=== PATIENT | male | born 1985 | race Caucasian/White ===

== ENCOUNTER 2020-07-19 13:27 | Outpatient (CLI) | payer OTHER ==
[2020-07-19] MEDS ORDERED: Magnevist 469MG/ML 20 ML VIAL ONE (13:56)
[2020-07-19] MEDS ORDERED: Iopamidol 300 61% 50 ML VIAL FS ONE (14:15)
[2020-07-19] MEDS ORDERED: Lidocaine 1% PF 10 ML AMP ONE (14:15)
[2020-07-19] MEDS ORDERED: EPINEPHrine 1 MG/ML AMP ONE (14:15)
[2020-07-19] MEDS ORDERED: Gadobenate Dimeglumine 529 MG/1 ML (20ML VIAL) ONE (14:15)
--- NOTE | 2020-07-19 15:05 | RAD ---
Arthrogram left shoulder HISTORY: Chronic shoulder pain. Internal derangement. FINDINGS: After explaining the procedure and answering all questions, the anterior aspect of the left shoulder was prepped and draped in usual sterile fashion. Sterile technique, buffered local anesthesia, fluoroscopic guidance, and an anterior approach were us ed to carefully advance the tip of a 22-gauge spinal needle to the joint capsule at the level of the humeral head. Approximately 9 cc of a liquid mixture containing normal saline, 1% lidocaine, iodi nated contrast, and small amounts of gadolinium and epinephrine were then instilled into the joint capsule under fluoroscopic control. Needle was removed. Contrast remained within the joint capsule. Patient tolerated the procedure well and was transferred to MRI in good condition for further imaging. IMPRESSION : Technically successful left shoulder arthrogram. No evidence of full-thickness rotator cuff tear. MRI is pending.
--- NOTE | 2020-07-19 16:10 | MRI ---
MR ARTHROGRAM LEFT SHOULDER: 07/19/20 PROVIDED CLINICAL HISTORY: Pain. FINDINGS: The components of the rotator cuff appear intact. The long head biceps tendon appears intact and norm ally located. The glenoid labrum and glenohumeral articular cartilage appear intact. There is cortical irregularity at the posterolateral humeral head that may reflect a sequela of prior minimal Hill-Sachs impaction injury. There is no surrounding marrow edema. There is conspicuous marrow edema within the distal clavicle and to a lesser extent opposing acromion . There is linear signal alteration seen within the distal clavicle. Regional marrow and muscular signal appear otherwise unremarkable. IMPRESSION: 1. No evidence for glenoid labral or rotator cuff tear. 2. Conspicuous stress related periarticular marrow edema about the acromioclavicular joint with possible nondisplaced distal clavicular stress fracture. POS: DANNIE
== END 2020-07-19 13:28 | disposition home or self-care (01) ==
LOC: RAD 13:27
PROVIDERS: ATTEND Orthopaedic Surgery
DX: M25.512 Pain in left shoulder (principal)
CPT/HCPCS: 23350; A9577; A9579; J0171; J2001; Q9967

== ENCOUNTER 2020-08-14 07:32 | Outpatient (CLI) | payer OTHER ==
[2020-08-14 17:22] LABS: #Eosinphils 0.2 10x3/uL (0.0-0.5); #Monocytes 0.4 10x3/uL (0.0-1.1); #Neutrophils 3.8 10x3/uL (1.5-8.4); %Basophils 0.5 % (0.0-2.0); %Eosinophils 2.7 % (0.0-6.0); %Lymphocytes 32.5 % (18.0-47.0); %Monocytes 5.9 % (0.0-10.0); %Neutrophils 58.1 % (40.0-75.0); Hemoglobin 14.7 g/dL (14.0-18.0); Mean Corpuscular HGB CONC 35.4 G/DL (32.0-36.0); Mean Corpuscular Hemoglobin 30.9 PG (27.0-33.0); Mean Corpuscular Volume 87.4 fl (80.0-100.0); Mean Platelet Volume 10.5 fl (7.4-10.4); Platelet Count 213 10x3/uL (130-400); RBC Distribution Width 11.4 % (11.5-14.5); Red Blood Cell (RBC) Count 4.75 10x6/uL (4.40-5.80); White Blood Cell (WBC) Count 6.6 10x3/uL (4.5-11.0)
[2020-08-15 09:25] LABS: SARS-CoV-2 MS2 Positive; SARS-CoV-2 N Gene Negative; SARS-CoV-2 S Gene Negative; SARS-CoV-2 by NAA Not Detected (NotDetected); SARS-CoV-2 orf1ab Negative
== END 2020-08-14 07:33 | disposition home or self-care (01) ==
LOC: LABBT 07:32
PROVIDERS: ATTEND Orthopaedic Surgery
DX: Z01.812 Encounter for preprocedural laboratory examination (principal); Z20.828 Contact with and (suspected) exposure to other viral communicable diseases; M84.312A Stress fracture, left shoulder, initial encounter for fracture
CPT/HCPCS: 85025; 87635; U0003

== ENCOUNTER 2020-08-17 07:10 | Day surgery (SDC) | payer OTHER ==
[2020-08-16 13:57] VITALS: BMI 25.1
[2020-08-17] MEDS ORDERED: Ondansetron PF 4 MG/2 ML Vial ONE ×2 (07:50→10:09)
[2020-08-17] MEDS ORDERED: Dexamethasone 20 MG/5 ML VIAL ONE ×2 (07:50→10:09)
[2020-08-17] MEDS ORDERED: Fentanyl 100 MCG/2 ML VIAL ONE ×3 (08:21→11:07)
[2020-08-17] MEDS ORDERED: Midazolam HCl 2 mg/2 ml Vial ONE (08:21)
[2020-08-17] MEDS ORDERED: Lidocaine 2% Jelly 5 ML TUBE ONE (08:30)
[2020-08-17] MEDS ORDERED: Lidocaine 1% w/Epinephrine 1:100K 20 ML VIAL ONE (08:42)
[2020-08-17] MEDS ORDERED: Zolpidem Tartrate 5 MG TAB PO PRN (09:00)
[2020-08-17] MEDS ORDERED: Promethazine HCl 25 MG/ML VIAL IM PRN (09:00)
[2020-08-17] MEDS ORDERED: HYDROcodone/Acetaminophen 10/325 mg Tablet PO PRN ×2 (09:00)
[2020-08-17] MEDS ORDERED: Ropivacaine 0.2% 550 ML 550 ML NERVE BLCK SCH (09:00)
[2020-08-17] MEDS ORDERED: traMADol HCl 50 MG TAB PO PRN ×2 (09:00)
[2020-08-17] MEDS ORDERED: Ondansetron PF 4 MG/2 ML Vial IVP PRN (09:00)
[2020-08-17] MEDS ORDERED: Glycopyrrolate 0.2 MG/ML 5 ML SYRINGE ONE (10:09)
[2020-08-17] MEDS ORDERED: Ropivacaine 0.2% HCl/PF (40 MG/20 ML VIAL) ONE (10:09)
[2020-08-17] MEDS ORDERED: Rocuronium Bromide 10 MG/ML (10ML VIAL) ONE (10:09)
[2020-08-17] MEDS ORDERED: PROPOFOL 200 MG/20 ML VIAL ONE (10:09)
[2020-08-17] MEDS ORDERED: Ropivacaine 0.5% HCl/PF (150 MG/30 ML VIAL) ONE (10:09)
[2020-08-17] MEDS ORDERED: ePHEDrine 50 MG/ML VIAL ONE (10:09)
[2020-08-17] MEDS ORDERED: Ketorolac Tromethamine 30 MG/ML VIAL IVP SCH (12:00)
[2020-08-17] MEDS ORDERED: HYDROcodone/Acetaminophen 5/325 mg Tablet ONE (12:40)
--- NOTE | 2020-08-20 13:49 | OP ---
DATE OF PROCEDURE: 08/17/2020 PREOPERATIVE DIAGNOSIS: Left acromioclavicular joint pain/stress fracture versus stress reaction. POSTOPERATIVE DIAGNOSIS: Left acromioclavicular joint pain/stress fracture versus stress reaction. PROCEDURE PERFORMED: Left distal clavicle resection. DIGITAL OPERATIONS ANALYST: None. ANESTHESIA: Dr. Aparicio. The patient received general endotracheal intubation with interscalene block. ESTIMATED BLOOD LOSS: Less than 30 mL. TOURNIQUET TIME: None. IMPLANTS: None. ANTIBIOTICS: Ancef 2 g. COMPLICATIONS: None. HISTORY OF PRESENT ILLNESS: Mr. Cochran is a 34-year-old male, who is well known to my service, who has failed conservative measures with therapy, pain with overhead activities, continued to complain of left distal clavicle pain. I discussed with the patient the risks and benefits of a left distal clavicle resection to include pain, scar, bleeding, infection, damage to vital structures, decreased range of motion and strength, continued pain despite surgical intervention, need for further surgeries, loss of life or limb. The patient understood these risks and benefits of the procedure and elected to proceed. DESCRIPTION OF PROCEDURE: Time-out was performed designating the left upper extremity as the operative site based on site, consents, and marking. After time-out, the patient's left upper extremity was prepped and draped in sterile fashion. Placed a posterior working portal, visualized intra-articularly, placed my spinal needle to localize within the rotator interval. There was some mild fraying of the labrum, but no significant tearing of the anterior labrum, glenoid, or humeral cartilage. The biceps labrum, there was no superior labral tearing noted. The biceps looked good throughout its course the subscap had good insertion. The rotator capsule looked perfect throughout its insertion. I moved subacromially and debrided off the bursa and we placed a lateral portal, debrided off the lateral bursa, exposed entirety of the patient's shoulder. I felt like there were no tears that could be found while looking at the anterolateral and posterior cuff. I then moved to the distal clavicle, exposed distal clavicle, shaved with my praveena, made sure there was entire 5 mm distance, took pictures to show my gap. I then washed and closed with 3-0 nylon. The patient will begin passive range of motion as tolerated. He will be sent home with Toradol, Medrol Dosepak, and hydrocodone. The patient will follow up to see me in clinic in about 2 weeks for suture removal. Job ID: [id number]
== END 2020-08-17 13:45 | disposition home or self-care (01) ==
LOC: SDC 07:10
PROVIDERS: ATTEND Orthopaedic Surgery
PROC: 3E0T3BZ Introduction of Anesthetic Agent into Peripheral Nerves and Plexi, Percutaneous Approach (ICD-10-PCS; principal; 2020-08-17)
PROC: 0PBB4ZZ Excision of Left Clavicle, Percutaneous Endoscopic Approach (ICD-10-PCS; principal; 2020-08-17)
DX: M84.312A Stress fracture, left shoulder, initial encounter for fracture (principal); G89.18 Other acute postprocedural pain; Z79.899 Other long term (current) drug therapy
CPT/HCPCS: A4306; J0690; J1100; J2250; J2405; J2704; J2795; J3010; J3490